=== PATIENT | male | born 1965 | race American Indian/Alaskan Native ===

== ENCOUNTER 2019-04-03 14:08 | Emergency (ER) | payer MEDICARE, MEDICAID ==
[2019-04-03 14:44] VITALS: BP 140/95
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
== END 2019-04-03 15:17 | disposition home or self-care (01) ==
LOC: ED 14:08
DX: Z21 Asymptomatic human immunodeficiency virus [HIV] infection status (principal); Z76.0 Encounter for issue of repeat prescription; E11.9 Type 2 diabetes mellitus without complications; F17.200 Nicotine dependence, unspecified, uncomplicated
CPT/HCPCS: 99282

== ENCOUNTER 2019-05-01 17:27 | Emergency (ER) | payer MEDICARE ==
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
[2019-05-01 19:20] VITALS: BP 121/75
== END 2019-05-01 19:23 ==
LOC: ED 17:27
DX: S61.412A Laceration without foreign body of left hand, initial encounter (principal); S00.83XA Contusion of other part of head, initial encounter; I10 Essential (primary) hypertension; F17.200 Nicotine dependence, unspecified, uncomplicated; E11.9 Type 2 diabetes mellitus without complications; Y09 Assault by unspecified means; Y93.89 Activity, other specified; Y92.89 Other specified places as the place of occurrence of the external cause; Y99.8 Other external cause status
CPT/HCPCS: 99282; 99283